=== PATIENT | female | born 2000 | race Caucasian/White ===

== ENCOUNTER 2023-11-07 14:20 | Emergency (ER) | payer OTHER ==
[~2023-11-07] VITALS: Ht 152.4 cm; Wt 130.0 kg
[2023-11-07 14:29] VITALS: O2SAT 99
[2023-11-07] MEDS: LORAZEPAM 0.5MG TABLET PO ONE (15:30)
[2023-11-07 16:54] VITALS: BP 116/79; PULSE 96; RESP 17; TEMP 98.2
== END 2023-11-07 16:57 | disposition home or self-care (01) ==
LOC: ER 14:51
DX: M54.2 Cervicalgia (principal); G89.11 Acute pain due to trauma; V49.49XA Driver injured in collision with other motor vehicles in traffic accident, initial encounter; Y93.89 Activity, other specified; Y92.89 Other specified places as the place of occurrence of the external cause; Y99.8 Other external cause status
CPT/HCPCS: 81025; 93005; 99283